=== PATIENT | male | born 1990 | race Caucasian/White ===

== ENCOUNTER 2020-12-30 14:24 | Outpatient (CLI) | payer SELFPAY ==
[2020-12-31 00:58] LABS: SARS-CoV-2 PCR by NAA Not Detected (NotDetected)
== END 2020-12-30 14:25 | disposition home or self-care (01) ==
LOC: LABBT 14:24
PROVIDERS: ATTEND Thoracic Surgery (Cardiothoracic Vascular Surgery)
DX: Z01.812 Encounter for preprocedural laboratory examination (principal); Z20.822 Contact with and (suspected) exposure to COVID-19
CPT/HCPCS: U0003; U0005

== ENCOUNTER 2021-01-01 08:18 | Day surgery (SDC) | payer OTHER, SELFPAY ==
[2020-12-31 13:16] VITALS: BMI 47.4
[2021-01-01] MEDS ORDERED: CEFAZOLIN 3 GM in Sodium Chloride 0.9% 100 ML IVPB SCH (08:45)
[2021-01-01] MEDS ORDERED: Midazolam HCl 2 mg/2 ml Vial ONE ×2 (09:15→10:53)
[2021-01-01] MEDS ORDERED: Fentanyl 100 MCG/2 ML VIAL ONE ×3 (10:53→12:45)
[2021-01-01] MEDS ORDERED: Rocuronium Bromide 10 MG/ML (10ML VIAL) ONE (10:54)
[2021-01-01] MEDS ORDERED: ePHEDrine 50 MG/ML VIAL ONE ×2 (10:54)
[2021-01-01] MEDS ORDERED: Ondansetron PF 4 MG/2 ML Vial ONE (10:54)
[2021-01-01] MEDS ORDERED: PROPOFOL 200 MG/20 ML VIAL ONE (10:54)
[2021-01-01] MEDS ORDERED: Lidocaine 1% PF 5 ML VIAL ONE (10:54)
[2021-01-01] MEDS ORDERED: Glycopyrrolate 0.2 MG/ML 5 ML SYRINGE ONE (10:54)
[2021-01-01] MEDS ORDERED: Bupivacaine PF 0.5% 30 ML VIAL ONE (11:43)
[2021-01-01] MEDS ORDERED: Lidocaine 1% w/Epinephrine 1:100K 20 ML VIAL ONE (11:43)
[2021-01-01] MEDS ORDERED: Meperidine HCl/PF 25 MG/ML VIAL ONE (12:12)
[2021-01-01] MEDS ORDERED: HYDROcodone/Acetaminophen 5/325 mg Tablet ONE (13:45)
[2021-01-01] MEDS ORDERED: HYDROcodone/Acetaminophen 10/325 mg Tablet ONE (13:48)
== END 2021-01-01 14:38 | disposition home or self-care (01) ==
LOC: SDC 08:18
PROVIDERS: ATTEND Thoracic Surgery (Cardiothoracic Vascular Surgery)
PROC: 0WBC0ZX Excision of Mediastinum, Open Approach, Diagnostic (ICD-10-PCS; principal; 2021-01-01)
DX: D49.89 Neoplasm of unspecified behavior of other specified sites (principal); Z87.891 Personal history of nicotine dependence
CPT/HCPCS: 88184; 88307; 88321; 88331; 88334; 88341; 88342; J0690; J1642; J2175; J2250; J2405; J2704; J3010; J3490; S0020